=== PATIENT | male | born 1945 | race Caucasian/White ===

== ENCOUNTER 2018-07-18 08:27 | Emergency (ER) | payer OTHER ==
--- NOTE | 2018-07-18 08:41 | UC ---
Bite Injury/Animal HPI - HPI Summary HPI Summary: Patient presents to urgent care after noting a tick on his left scrotum this morning. Patient states he was outside moving some wood outside yesterday and thinks this is when came in contact. States it is not engorged. Patient did have a tick that he removed approximately 4 weeks ago to 1 dose of doxycycline. Patient is not immunocompromised. Patient without any other concerns. Medication reviewed - History of Current Complaint Stated Complaint: TICK PERSONAL Time Seen by Provider: 07/18/18 08:34 Hx Obtained From: Patient Severity Currently: None Onset/Duration: Sudden Onset Type of Bite: Wild Animal - tick - Allergies/Home Medications Allergies/Adverse Reactions: Allergies Allergy/AdvReac Type Severity Reaction Status Date / Time No Known Allergies Allergy Verified 07/18/18 08:39 Home Medications: Home Medications Multivitamin [Multivitamins] 0.5 cap PO DAILY 07/18/18 [History Confirmed ] [place]-3 Fatty Acids/Fish Oil [Fish Oil 1,000 mg Softgel] 1 each PO DAILY [History Confirmed 07/18/18] PMH/Surg Hx/FS Hx/Imm Hx Previously Healthy: Yes - Surgical History Surgical History: None - Family History Known Family History: Positive: Non-Contributory - Social History Lives: With Family Alcohol Use: None Substance Use Type: None Review of Systems All Other Systems Reviewed And Are Negative: Yes Constitutional: Positive: Negative Skin: Positive: Other - tick left scrotum Physical Exam - Summary Physical Exam Summary: Vital Signs Reviewed: Yes A+Ox3, no distress Eyes: Conjunctiva Clear ENT: Hearing grossly normal neck: supple Respiratory: Positive: No respiratory distress, No accessory muscle use Cardiovascular: skin color reflect adequate perfusion Musculoskeletal Exam: RUIZ x 4 without difficulty Neurological: Positive: Alert, ambulatory without difficulty Psychological: Positive: Normal Response To Family Skin: Positive: pt with nonegorged tick on left scrotum - easily removed intact and alive with tick twister tick intact under magnification CARRIE bobby Bite Injury Course/Dx - Course Course Of Treatment: pt with tick on left scrotum this am. Pt was outside yesterday tick not engorged - easily removed intact reviewed CDC recommendations with pt - no prophylaxis given s/s lyme dx reviewed BP mildly elevated - recommend f/u with pcp - Differential Dx/Diagnosis Provider Diagnosis: Tick bite Discharge - Sign-Out/Discharge Documenting (check all that apply): Patient Departure All imaging exams completed and their final reports reviewed: No Studies - Discharge Plan Condition: Stable Disposition: HOME Patient Education Materials: Tick Bite (ED) Referrals: Vick Purdy NP [Primary Care Provider] - Additional Instructions: Keep area clean and dry Check yourself daily for ticks after you have been working in the [place] Contact your doctor or return with questions or concerns Approach to prophylaxis : According to the Infectious Diseases Society of [place] (IDSA) guidelines that recommend antibiotic prophylaxis only in patients who meet all of the following criteria: 1. Attached tick identified as an adult or nymphal I. scapularis tick (deer tick). 2. Tick is estimated to have been attached for 36 hours (by degree of engorgement or time of exposure). 3. Prophylaxis is begun within 72 hours of tick removal. Local rate of infection of ticks with B. burgdorferi is 20 percent if attached for over 48 hours (these rates of infection have been shown to occur in parts of [place], parts of the [facility], and parts of [place] and [place]). If you experience a tick and time of attachment is believed to be less than 36 hours, you may remove the tick with head intact and no need for prophylaxis. If over 36 hours, please come into UC. Prophylactic doxycycline is not recommended for ticks attached less than 36 hours. - Billing Disposition and Condition Condition: STABLE Disposition: Home
[2018-07-18 08:48] VITALS: BP 140/73
== END 2018-07-18 09:20 | disposition home or self-care (01) ==
LOC: UCEAST 08:27
DX: S30.863A Insect bite (nonvenomous) of scrotum and testes, initial encounter (principal); W57.XXXA Bitten or stung by nonvenomous insect and other nonvenomous arthropods, initial encounter; Y92.9 Unspecified place or not applicable
CPT/HCPCS: 99211; G0463